=== PATIENT | male | born 1985 | race Two or more races ===

== ENCOUNTER → 2017-01-05 | Emergency (ER) | payer SELFPAY ==
[~2017-01-05] VITALS: Ht 172.7 cm; Wt 81.6 kg
[~2017-01-05] MED LIST: Haloperidol 5mg/ml Inj IM ONE; LORazepam Inj 2mg/ml 1ml IM ONE
--- NOTE | 2017-01-05 22:36 | Emergency Room Report ---
History of Present Illness General Chief Complaint: Alcohol Intoxication Source: Patient, EMS Present Illness HPI 31-year-old male unknown significant past medical history presenting with alcohol intoxication. History is provided by police as patient is not cooperative Police states that patient was publicly drunk at [employer], And was taken in by police. Patient very angry with police, not providing much history, however denying any medical complaints at this time. No history of trauma. Denying SI or HI, no auditory hallucinations Allergies: Coded Allergies: UNABLE TO ASSESS (Unverified , 01/05/17) Patient History Past Medical History: see triage record Past Surgical History: none Pertinent Family History: none Reviewed Nursing Documentation: PMH: Agreed, PSxH: Agreed Review of Systems All Other Systems: negative except mentioned in HPI Physical Exam Sp02 EP Interpretation: reviewed, normal General Appearance: alert, GCS 15, non-toxic, other - Intoxicated however ANO x3, fully conversing however not cooperating with history as he is very angry with police. Head: normocephalic, atraumatic Eyes: bilateral eye normal inspection, bilateral eye PERRL, bilateral eye EOMI ENT: normal ENT inspection, normal pharynx, normal voice, moist mucus membranes Neck: normal inspection, full range of motion, supple Respiratory: normal inspection, lungs clear, normal breath sounds, no respiratory distress, no retraction, no wheezing, speaking full sentences, chest symmetrical Cardiovascular #1: normal inspection, regular rate, rhythm, no edema, normal capillary refill Cardiovascular #2: 2+ radial (R), 2+ radial (L) Gastrointestinal: normal inspection, non tender, soft, non-distended, no guarding Genitourinary: no CVA tenderness Musculoskeletal: normal inspection, back normal, normal range of motion, non- tender Neurologic: normal inspection, alert, oriented x3, responsive, motor strength/ tone normal, sensory intact, normal gait, speech normal Psychiatric: memory normal, other - Appears slightly intoxicated, however oriented x3 Skin: normal inspection, normal color, no rash, warm/dry, well hydrated, normal turgor Medical Decision Making Diagnostic Impression: Primary Impression: Acute alcoholic intoxication ER Course 31-year-old male with alcohol intoxication DDX: Likely alcohol intoxication No signs of trauma Plan: Patient mildly intoxicated, however fully conversive, will be discharged back to police custody ER course: Patient has remained stable during ED stay. Patient's brother came and talked to patient, patient released to police custody Disposition: Patient is to be discharged to police custody Patient is instructed to follow up with their primary care doctor within 5 days. Please note that this Emergency Department Report was dictated using [employer] technology software, occasionally this can lead to erroneous entry secondary to interpretation by the dictation equipment Disposition: D/C TO LAW ENFORCEMENT IN CUST Condition: Jessica Silva M.D. Jan 05, 2017 22:36
== END ==
LOC: EMR 22:43
DX: F10.129 Alcohol abuse with intoxication, unspecified (principal)
CPT/HCPCS: 96372; 99284